=== PATIENT | female | born 1965 | race African-American/Black ===

== ENCOUNTER 2017-06-26 21:27 | Emergency (ER) | payer MEDICAID ==
[~2017-06-26] VITALS: Ht 170.2 cm; Wt 76.7 kg
[~2017-06-26 21:27] MED LIST: GLIM4TAB2 PO; LAMO25TA5 PO; LIRA0.6P SQ; SITA100T PO
--- NOTE | 2017-06-26 21:40 | NUR ---
To bed 6 a 51 yo female patient bb self; "frequent urge to pee with discomfort x 1 day." Patient is afebrile, nad noted, ambulatory with steady gait, vss. gowned. comfort measures rendered.
[2017-06-26 22:51] LABS: APPEARANCE,URINE CLOUDY (CLEAR); BILIRUBIN,URINE NEGATIVE (NEGATIVE); BLOOD, URINE 3+ Ery/uL (NEGATIVE); COLOR,URINE YELLOW (YELLOW); KETONES,URINE TRACE (NEGATIVE); LEUKOCYTE ESTERASE ,URINE 3+ (NEGATIVE); NITRITE, URINE NEGATIVE (NEGATIVE); PROTEIN,URINE TRACE mg/dl (NEGATIVE); UGLUCOSE NEGATIVE (NEGATIVE); UROBILINOGEN,URINE 0.2 EU/dL (0.2)
[2017-06-26 23:03] LABS: BACTERIA,URINE Moderate /HPF (None Seen); SQUAMOUS EPITHELIAL CELL,UR Few /HPF (None Seen); WBC,URINE TOO NUMEROUS TO COUN /HPF (0-3)
[2017-06-26] MEDS ORDERED: PHENAZOPYRIDINE HCL 200 MG TABLET ONE (23:39)
[2017-06-26] MEDS ORDERED: NITROFURANTOIN/NITROFURAN MAC 100 MG CAPSULE ONE (23:39)
[2017-06-26 23:44] VITALS: BP 118/74
--- NOTE | 2017-06-26 23:44 | NUR ---
Patient discharged to home in stable condition. Written and verbal after care instructions given. Patient verbalizes understanding of instruction. Patient is ambulatory with steady gait, no further complaints.
[2017-06-27] MEDS ORDERED: NITROFURANTOIN/NITROFURAN MAC 100 MG CAPSULE PO ONE
[2017-06-27] MEDS ORDERED: PHENAZOPYRIDINE HCL 200 MG TABLET PO ONE
== END 2017-06-26 23:45 | disposition home or self-care (01) ==
LOC: ER 21:29
DX: N30.90 Cystitis, unspecified without hematuria (principal); E11.9 Type 2 diabetes mellitus without complications
CPT/HCPCS: 81001; 87077; 87086; 87186; 99284; A4606; Z7610; 81000-TC

== ENCOUNTER 2017-09-27 15:42 | Emergency (ER) | payer MEDICAID ==
[~2017-09-27] VITALS: Ht 170.2 cm; Wt 77.1 kg
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
[2017-09-27] MEDS ORDERED: KETOROLAC TROMETHAMINE INJ 60 MG/2 ML VIAL IM ONE ×2 (16:17→16:30)
[2017-09-27] MEDS ORDERED: HYDROMORPHONE INJ 2 MG/ML DISP.SYRIN ONE (17:15)
[2017-09-27] MEDS ORDERED: ONDANSETRON 4 MG TAB.RAPDIS ONE (17:16)
--- NOTE | 2017-09-27 17:20 | NUR ---
Ara ramirez in [facility] - 09/27/17 at 1731 by FRANCES Patient discharged to home in stable condition. Written and verbal after care instructions given. Patient verbalizes understanding of instruction.
[2017-09-27] MEDS ORDERED: HYDROMORPHONE 1 MG/1 ML DISP.SYRIN IM ONE (17:30)
[2017-09-27] MEDS ORDERED: ONDANSETRON 4 MG TAB.RAPDIS SL ONE (17:30)
--- NOTE | 2017-09-27 18:01 | NUR ---
Patient discharged to home in stable condition. Written and verbal after care instructions given. Patient verbalizes understanding of instruction.
[2017-09-27 18:02] VITALS: BP 122/69
== END 2017-09-27 18:03 | disposition home or self-care (01) ==
LOC: ER 15:45
DX: M54.5 Low back pain (principal); E11.9 Type 2 diabetes mellitus without complications; W10.8XXA Fall (on) (from) other stairs and steps, initial encounter; Y93.89 Activity, other specified; Y92.89 Other specified places as the place of occurrence of the external cause; Y99.8 Other external cause status
CPT/HCPCS: 72110; 96372 ×2; 99284; A4606; J1170; J1885 ×2; Q0162; Z7610

== ENCOUNTER 2017-09-30 11:51 | Emergency (ER) | payer MEDICAID ==
[~2017-09-30] VITALS: Ht 170.2 cm; Wt 77.1 kg
[2017-09-30 12:00] VITALS: BP 136/69
== END 2017-09-30 14:27 | disposition home or self-care (01) ==
LOC: ER 12:01
DX: M54.5 Low back pain (principal); E11.9 Type 2 diabetes mellitus without complications
CPT/HCPCS: 99281; A4606; Z7610; Z7502

== ENCOUNTER 2018-03-12 13:34 | Emergency (ER) | payer MEDICAID ==
[~2018-03-12] VITALS: Ht 170.2 cm; Wt 77.1 kg
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
[2018-03-12 14:31] VITALS: BP 120/76
== END 2018-03-12 14:32 | disposition home or self-care (01) ==
LOC: ER 13:36
DX: R56.9 Unspecified convulsions (principal); E11.9 Type 2 diabetes mellitus without complications; F10.10 Alcohol abuse, uncomplicated; Y90.9 Presence of alcohol in blood, level not specified
CPT/HCPCS: A4606; Z7610